=== PATIENT | male | born 1985 | race Hispanic/Latino ===

== ENCOUNTER 2022-05-15 07:04 | Emergency (ER) | payer SELFPAY ==
[2022-05-15] MEDS ORDERED: LORazepam 2 MG/ML VIAL IV ONE (07:34)
[2022-05-15] MEDS ORDERED: TETANUS,DIPH,PERTUSS(ACELL) VACCINE 0.5 ML SYRINGE IM ONE (07:35)
--- NOTE | 2022-05-15 07:38 | Emergency Department Report ---
ED Seizure HPI - General Chief Complaint: Seizure Stated Complaint: POSS SZ Source: patient, EMS, old records reviewed (none) Mode of arrival: Stretcher Limitations: No Limitations - History of Present Illness Initial Comments: 36-year-old male history of alcohol abuse [place] to the hospital with new onset seizure. Patient states he felt like his vision was going blurry. He went to bathroom to apply water to his face when he blacked out and had a witnessed seizure by bystanders. Patient presents with an abrasion to his nose. He is alert and oriented x4 upon EMS arrival with c-collar in place. Patient denies neck pain, headache, and does complain of pain at area of nose abrasion. Patient states he would drink half a gallon of liquor and/or beer per day but stopped cold turkey 3 to 4 days ago. He denies previous history of alcohol withdrawal tremors or seizures. He also denies recent head injury prior to the fall today - Related Data Previous Rx's Medication Instructions Recorded Last Taken Type Bacitracin Zinc Oint [Antibiotic 1 applicatio TP BID #1 tube 05/15/22 Unknown Rx Oint] chlordiazePOXIDE [Librium] 50 dose PO Q6H #20 cap 05/15/22 Unknown Rx Allergies Allergy/AdvReac Type Severity Reaction Status Date / Time No Known Allergies Allergy Verified 05/15/22 07:12 ED Review of Systems ROS: Stated complaint: POSS SZ Other details as noted in HPI Comment: All other systems reviewed and negative ED Past Medical Hx - Past Medical History Previous Medical History?: No - Social History Substance Use Type: Alcohol - Medications Home Medications: Home Medications Medication Instructions Recorded Confirmed Last Taken Type Bacitracin Zinc Oint [Antibiotic 1 applicatio TP BID #1 tube 05/15/22 Unknown Rx Oint] chlordiazePOXIDE [Librium] 50 dose PO Q6H #20 cap 05/15/22 Unknown Rx ED Physical Exam - General Limitations: No Limitations - Other Other exam information: General: No acute distress Head: Contusion to left forehead abrasion to left side of nose Eyes: normal appearance ENT: Moist mucous membranes, abrasion to left side of nose, no tenderness to nasal bridge, no septal hematoma Neck: Normal appearance, no midline tenderness, c-collar cleared based on Nexus criteria and collar removed Chest: Clear to auscultation bilaterally CV: Regular rate and rhythm Abdomen: Soft, normal bowel sounds, nontender, nondistended, no rebound or guarding Back: Normal inspection Extremity: Normal inspection, full range of motion Neuro: Alert O x 3, no facial asymmetry, speech clear, no gross motor sensory deficit, [id number] function intact however very minimal tremor with arms extended Psych: Appropriate behavior Skin: No rash ED Course Vital Signs 05/15/22 05/15/22 05/15/22 07:10 07:51 08:11 Temperature 98.3 F 98.2 F Pulse Rate 89 73 77 Respiratory 18 12 16 Rate Blood Pressure 114/74 Blood Pressure 137/96 109/69 [Left] O2 Sat by Pulse 98 100 98 Oximetry 05/15/22 09:24 Temperature Pulse Rate 67 Respiratory 14 Rate Blood Pressure Blood Pressure 108/68 [Left] O2 Sat by Pulse 100 Oximetry - Reevaluation(s) Reevaluation #1: 05/15/22 10:09 pt is drowy after ativan but arousable with normal vitals. Coworker at the bedside. He did not witness episode. He will take patient home. 05/15/22 10:22 Steady gait prior to discharge ED Medical Decision Making - Lab Data Result diagrams: 05/15/22 07:40 05/15/22 07:40 Lab Results 05/15/22 05/15/22 05/15/22 Range/Units 07:40 07:40 07:40 WBC 5.5 (4.5-11.0) K/mm3 RBC 4.56 (3.65-5.03) M/mm3 Hgb 14.8 (11.8-15.2) gm/dl Hct 42.1 (35.5-45.6) % MCV 92 (84-94) fl MCH 33 H (28-32) pg MCHC 35 H (32-34) % RDW 13.4 (13.2-15.2) % Plt Count 108 L (140-440) K/mm3 Lymph % (Auto) 12.7 L (13.4-35.0) % Lamar % (Auto) 3.4 (0.0-7.3) % Eos % (Auto) 2.3 (0.0-4.3) % Baso % (Auto) 0.2 (0.0-1.8) % Lymph # (Auto) 0.7 L (1.2-5.4) K/mm3 Lamar # (Auto) 0.2 (0.0-0.8) K/mm3 Eos # (Auto) 0.1 (0.0-0.4) K/mm3 Baso # (Auto) 0.0 (0.0-0.1) K/mm3 Seg Neutrophils % 81.4 H (40.0-70.0) % Seg Neutrophils # 4.5 (1.8-7.7) K/mm3 Sodium 137 (137-145) mmol/L Potassium 3.7 (3.6-5.0) mmol/L Chloride 96.8 L (98-107) mmol/L Carbon Dioxide 27 (22-30) mmol/L Anion Gap 17 mmol/L BUN 8 L (9-20) mg/dL Creatinine 0.8 (0.8-1.3) mg/dL Estimated GFR > 60 ml/min BUN/Creatinine Ratio 10 % Glucose 133 H (75-100) mg/dL POC Glucose (70-105) mg/dL Calcium 9.5 (8.4-10.2) mg/dL Magnesium 1.80 (1.7-2.3) mg/dL Total Bilirubin 0.70 (0.1-1.2) mg/dL AST 75 H (5-40) units/L ALT 84 H (7-56) units/L Alkaline Phosphatase 82 (35-129) units/L Total Protein 7.0 (6.3-8.2) g/dL Albumin 5.0 (3.9-5) g/dL Albumin/Globulin Ratio 2.5 % Urine Opiates Screen Urine Methadone Screen Ur Barbiturates Screen Ur Phencyclidine Scrn Ur Amphetamines Screen U Benzodiazepines Scrn Urine Cocaine Screen U Marijuana (THC) Screen Drugs of Abuse Note Plasma/Serum Alcohol < 0.01 (0-0.07) % 05/15/22 05/15/22 Range/Units 07:57 Unknown WBC (4.5-11.0) K/mm3 RBC (3.65-5.03) M/mm3 Hgb (11.8-15.2) gm/dl Hct (35.5-45.6) % MCV (84-94) fl MCH (28-32) pg MCHC (32-34) % RDW (13.2-15.2) % Plt Count (140-440) K/mm3 Lymph % (Auto) (13.4-35.0) % Lamar % (Auto) (0.0-7.3) % Eos % (Auto) (0.0-4.3) % Baso % (Auto) (0.0-1.8) % Lymph # (Auto) (1.2-5.4) K/mm3 Lamar # (Auto) (0.0-0.8) K/mm3 Eos # (Auto) (0.0-0.4) K/mm3 Baso # (Auto) (0.0-0.1) K/mm3 Seg Neutrophils % (40.0-70.0) % Seg Neutrophils # (1.8-7.7) K/mm3 Sodium (137-145) mmol/L Potassium (3.6-5.0) mmol/L Chloride (98-107) mmol/L Carbon Dioxide (22-30) mmol/L Anion Gap mmol/L BUN (9-20) mg/dL Creatinine (0.8-1.3) mg/dL Estimated GFR ml/min BUN/Creatinine Ratio % Glucose (75-100) mg/dL POC Glucose 160 H (70-105) mg/dL Calcium (8.4-10.2) mg/dL Magnesium (1.7-2.3) mg/dL Total Bilirubin (0.1-1.2) mg/dL AST (5-40) units/L ALT (7-56) units/L Alkaline Phosphatase (35-129) units/L Total Protein (6.3-8.2) g/dL Albumin (3.9-5) g/dL Albumin/Globulin Ratio % Urine Opiates Screen Negative Urine Methadone Screen Negative Ur Barbiturates Screen Negative Ur Phencyclidine Scrn Negative Ur Amphetamines Screen Negative U Benzodiazepines Scrn Negative Urine Cocaine Screen Negative U Marijuana (THC) Screen Negative Drugs of Abuse Note Disclamer Plasma/Serum Alcohol (0-0.07) % - EKG Data -: EKG Interpreted by Me EKG shows normal: sinus rhythm, intervals (QTC 434), QRS complexes (QRS duration 98), ST-T waves (no stemi) Rate: normal - Radiology Data Radiology results: report reviewed CT MAXILLOFACIAL WITHOUT CONTRAST INDICATION / CLINICAL INFORMATION: face/nose injury after fall and trauma. TECHNIQUE: All CT scans at this location are performed using CT dose reduction for ALARA by means of automated exposure control. COMPARISON: None available. FINDINGS: FACIAL BONES: No fracture or other significant abnormality. GAMBRELER SPACES:Evaluation of the tax commissioner space structures reveal no abnormalities. SALIVARY GLANDS: Parotid and submandibular salivary glands have a normal appearance PARANASAL SINUSES: Retention cysts or polyps are present in both maxillary sinuses. Paranasal sinuses are otherwise free from inflammatory mucosal disease. NASAL CAVITY: Pneumatization of both middle turbinates is noted, right more than left with expansion of the right middle turbinate. ORBITS: Globes, optic nerves and extraocular muscles have an unremarkable appearance. TEMPORAL BONES:Visualized mastoid air cells and the middle ear cavities are normally pneumatized. VISUALIZED INTRACRANIAL STRUCTURES: Refer to CT head report dictated separately ADDITIONAL FINDINGS: None. IMPRESSION: 1. No indication of facial fracture or other osseous abnormality. CT HEAD WITHOUT CONTRAST INDICATION / CLINICAL INFORMATION: new onset seizure, head injury. TECHNIQUE: All CT scans at this location are performed using CT dose reduction for ALARA by means of automated exposure control. COMPARISON: None available. FINDINGS: HEMORRHAGE: No evidence of intracranial hemorrhage or extra-axial fluid collection. EXTRA-AXIAL SPACES: Cortical sulci, sylvian fissures and basilar cisterns have an unremarkable appearance. VENTRICULAR SYSTEM: The third and lateral ventricles are of normal size and configuration. CEREBRAL PARENCHYMA: No areas of abnormal brain parenchymal attenuation are identified. There is no indication of recent infarction. MIDLINE SHIFT OR HERNIATION: There is no mass effect. CEREBELLUM / BRAINSTEM: Brainstem and cerebellum have an unremarkable appearance. MIDLINE STRUCTURES:No abnormalities of the pituitary gland or pineal region are identified. INTRACRANIAL VESSELS:No abnormalities are identified on this noncontrast head CT. ORBITS: visualized portions of the orbits have an unremarkable appearance. SOFT TISSUES of HEAD: No significant abnormality. CALVARIUM: Evaluation of bone windows reveals no abnormalities. PARANASAL SINUSES / MASTOID AIR CELLS: Visualized portions of the paranasal sinuses are free from inflammatory mucosal disease. Mastoid air cells are normally pneumatized. IMPRESSION: 1. Normal head CT without contrast. - Medical Decision Making 36-year-old male presents to the hospital with facial contusion and injury status post first-time seizure. Patient is an alcoholic with heavy daily alcohol use up until quitting cold turkey 3 to 4 days ago. Mild tremor noted on examination. Patient was alert and oriented upon ED arrival and see spine cleared with Nexus criteria. CT head and facial bones without acute injury. Tetanus provided secondary to abrasion to nose. Patient received 1 dose of A tivan 1 mg IV without further seizure activity in the ED. labs and vitals are unremarkable. patient will be discharged home with Librium taper and outpatient follow-up Critical Care Time: No Critical care attestation.: If time is entered above; I have spent that time in minutes in the direct care of this critically ill patient, excluding procedure time. ED Disposition Clinical Impression: Alcohol withdrawal seizure, Nose abrasion Disposition: HOME / SELF CARE / HOMELESS Is pt being admited?: No Does the pt Need Aspirin: No Condition: Stable Instructions: Seizure, Adult, Abrasion, Gjai-ci-Cfie, Alcohol Withdrawal Syndrome, Tzcw-da-Imot Additional Instructions: Take the medication as prescribed. Follow-up with your doctor or doctor/clinic provided. Return if symptoms worsen as indicated by your discharge instructions. Professional and Agency Contacts To help [facility] Crises (11/03) [place] Crisis Line: Suicide Prevention Line: Crisis Text Line: Text ``START to 086169 Emergency: 911 SUBSTANCE ABUSE PROGRAMS: Sober Living [place]: Location: [place], [place] [employer] Address: [address] [place] [address] [facility] Recovery: Address: [address] [place] [address] [facility] Adult Rehabilitation: Address: [address] [place] [address] [facility] Community: Address: [address] [place] [address] Prescriptions: Bacitracin Zinc Oint [Antibiotic Oint] 1 applicatio TP BID #1 tube chlordiazePOXIDE [Librium] 50 dose PO Q6H #20 cap Referrals: [facility] [Provider Group] - 3-5 Days PRIMARY [facility]ARE, [Primary Care Provider] - 3-5 Days BHARGAVI NOGUEIRA MD [Staff Physician] - 3-5 Days (neurology ) OSCAR ROBERTS MD [Staff Physician] - 3-5 Days Forms: Work/School Release Form(ED) Time of Disposition: 10:12
[2022-05-15 07:47] LABS: Amphetamine Screen,Urine Negative; Benzodiazepines Screen,Urine Negative; Cannabinoid Screen,Urine Negative; Cocaine Screen,Urine Negative; Methadone Screen,Urine Negative; Opiate Screen,Urine Negative
[2022-05-15 07:48] LABS: Basophils % (Auto) 0.2 % (0.0-1.8); Eosinophils # (Auto) 0.1 K/mm3 (0.0-0.4); Eosinophils % (Auto) 2.3 % (0.0-4.3); Hematocrit 42.1 % (35.5-45.6); Hemoglobin 14.8 gm/dl (11.8-15.2); Lymphocytes # (Auto) 0.7 K/mm3 (1.2-5.4); Lymphocytes % (Auto) 12.7 % (13.4-35.0); Mean Corpuscular HGB Conc 35 % (32-34); Mean Corpuscular Volume 92 fl (84-94); Monocytes # (Auto) 0.2 K/mm3 (0.0-0.8); Monocytes % (Auto) 3.4 % (0.0-7.3); Platelet Count 108 K/mm3 (140-440); Red Blood Count 4.56 M/mm3 (3.65-5.03); Red Cell Distribution Width 13.4 % (13.2-15.2)
--- NOTE | 2022-05-15 08:13 | Cat Scan Report ---
CT HEAD WITHOUT CONTRAST INDICATION / CLINICAL INFORMATION: new onset seizure, head injury. TECHNIQUE: All CT scans at this location are performed using CT dose reduction for ALARA by means of automated e xposure control. COMPARISON: None available. FINDINGS: HEMORRHAGE: No evidence of intracranial hemorrhage or extra-axial fluid collection. EXTRA-AXIAL SPACES: Cortical sulci, sylvian fissures and basilar cisterns have an unremarkable appear ance. VENTRICULAR SYSTEM: The third and lateral ventricles are of normal size and configuration. CEREBRAL PARENCHYMA: No areas of abnormal brain parenchymal attenuation are identified. There is no i ndication of recent infarction. MIDLINE SHIFT OR HERNIATION: There is no mass effect. CEREBELLUM / BRAINSTEM: Brainstem and cerebellum have an unremarkable appearance. MIDLINE STRUCTURES:No abnormalities of the pituitary gland or pineal region are identified. INTRACRANIAL VESSELS:No abnormalities are identified on this noncontrast head CT. ORBITS: visualized portions of the orbits have an unremarkable appearance. SOFT TISSUES of HEAD: No significant abnormality. CALVARIUM: Evaluation of bone windows reveals no abnormalities. PARANASAL SINUSES / MASTOID AIR CELLS: Visualized portions of the paranasal sinuses are free from inf lammatory mucosal disease. Mastoid air cells are normally pneumatized. IMPRESSION: 1. Normal head CT without contrast. Signer Name: Rupert Duff MD Signed: 05/15/2022 8:09 AM Workstation Name: [id number]
--- NOTE | 2022-05-15 08:17 | Cat Scan Report ---
CT MAXILLOFACIAL WITHOUT CONTRAST INDICATION / CLINICAL INFORMATION: face/nose injury after fall and trauma. TECHNIQUE: All CT scans at this location are performed using CT dose reduction for ALARA by means of automated e xposure control. COMPARISON: None available. FINDINGS: FACIAL BONES: No fracture or other significant abnormality. FINAL RAIL CUTTER SPACES:Evaluation of the prosthodontist/owner space structures reveal no abnormalities. SALIVARY GLANDS: Parotid and submandibular salivary glands have a normal appearance PARANASAL SINUSES: Retention cysts or polyps are present in both maxillary sinuses. Paranasal sinuses are otherwise free from inflammatory mucosal disease. NASAL CAVITY: Pneumatization of both middle turbinates is noted, right more than left with expansion of the right middle turbinate. ORBITS: Globes, optic nerves and extraocular muscles have an unremarkable appearance. TEMPORAL BONES:Visualized mastoid air cells and the middle ear cavities are normally pneumatized. VISUALIZED INTRACRANIAL STRUCTURES: Refer to CT head report dictated separately ADDITIONAL FINDINGS: None. IMPRESSION: 1. No indication of facial fracture or other osseous abnormality. Signer Name: Rupert Duff MD Signed: 05/15/2022 8:13 AM Workstation Name: [employer]
[2022-05-15 08:49] LABS: Alanine Aminotransferase 84 units/L (7-56); BUN/Creatinine Ratio 10; Blood Urea Nitrogen 8 mg/dL (9-20); Calcium 9.5 mg/dL (8.4-10.2); Hemolysis Index 8
[2022-05-15 09:25] VITALS: BP 108/68
--- NOTE | 2022-05-18 12:13 | Electrocardiograph Report ---
[facility] Test Date: 2022-05-15 Test Time: 07:43:38 Pat Name: AIDAN BARTLETT Department: Room: Gender: M Sheep Herder: DARIO : 1985 Requested By: JAMES AUGUSTIN Order Number: [id number] Reading MD: Pb Ulloa Measurements Intervals [place] Rate: 72 P: 66 MN: 150 QRS: 51 QRSD: 98 T: 38 QT: 396 QTc: 434 Interpretive Statements Sinus rhythm No previous ECG available for comparison Electronically Signed On 05-18-2022 9:13:13 PDT by Pb Ulloa
== END 2022-05-15 10:36 | disposition home or self-care (01) ==
LOC: ED 07:04
DX: S00.31XA Abrasion of nose, initial encounter (principal); F10.239 Alcohol dependence with withdrawal, unspecified; R56.9 Unspecified convulsions; Z79.899 Other long term (current) drug therapy; X58.XXXA Exposure to other specified factors, initial encounter; Y93.89 Activity, other specified; Y92.89 Other specified places as the place of occurrence of the external cause; Y99.8 Other external cause status
CPT/HCPCS: 36415; 70450; 70486; 80053; 80307; 82962; 83735; 85025; 90471; 90715; 93005; 96374; 99284; J2060; 80320; G0480